=== PATIENT | female | born 1975 | race Caucasian/White ===

== ENCOUNTER 2017-02-10 14:16 | Emergency (ER) | payer SELFPAY ==
[~2017-02-10 14:16] MED LIST: DOXY100T PO; LAMI25TA3 OR; SULF-154 PO
[2017-02-10 14:51] VITALS: BP 132/84; PULSE 95; RESP 20; TEMP 98.8; O2SAT 98
[2017-02-10] MEDS ORDERED: ONDANSETRON HCL 4 MG/2 ML VIAL IV PUSH ONE (15:15)
[2017-02-10] MEDS ORDERED: ONDANSETRON ODT 4 MG TAB PO ONE (15:30)
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
[2017-02-10 16:30] VITALS: BP 112/72; PULSE 84; RESP 16; O2SAT 98
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
[2017-02-10] MEDS ORDERED: DOXY100C PO (17:38)
[2017-02-10] MEDS ORDERED: IBUPROFEN 600 MG TAB PO ONE (17:45)
[2017-02-10] MEDS ORDERED: CIPR-9 PO (17:48)
[2017-02-10] MEDS ORDERED: HYDR-3533 PO (18:48)
== END 2017-02-10 19:05 | disposition home or self-care (01) ==
LOC: PHEFT 14:16
DX: S02.40EA Zygomatic fracture, right side, initial encounter for closed fracture (principal); S02.40CA Maxillary fracture, right side, initial encounter for closed fracture; M25.511 Pain in right shoulder; Y04.2XXA Assault by strike against or bumped into by another person, initial encounter
CPT/HCPCS: 70450; 70486; 73030; 99285